=== PATIENT | male | born 1990 | race Caucasian/White ===

== ENCOUNTER 2018-01-05 05:40 | Day surgery (SDC) | payer OTHER ==
[~2018-01-05] VITALS: Ht 167.6 cm; Wt 63.0 kg
--- NOTE | ~2018-01-05 | PATH ---
[facility] [address] [place] [address] PATHOLOGY RPT PROCEDURE Name: MARZENA WASHINGTON Room #: DEP [facility] M.R.#: [id number] Admission: 01/05/18 Date of : 89 Discharge: 01/05/18 Report #: [id number] Path Case #: [id number] [facility] Accession Number: [id number] . 01 Material submitted: . PART A: RIGHT TONSIL AND ADENOID PART B: LEFT TONSIL . 01 Clinical history: . Hypertrophy tonsils and adenoid, chronic sinusitis . 02 Diagnosis: A. Tonsil and adenoid, right tonsillectomy and adenoidectomy: - Acutely inflamed epithelium overlying lymphoid tissue with reactive hyperplasia. . B. Tonsil, left, tonsillectomy: - Acutely inflamed epithelium overlying lymphoid tissue with reactive hyperplasia. (IUV:01/06/2018) QMS/01/06/2018 . 02 Electronically signed: . Kristi Hayes MD, Pathologist NPI- [id number] . 01 Gross description: . A. The specimen is received in formalin, labeled "Marzena Washington, and right tonsil and adenoid", is a carr-pink rubbery tonsil measuring 3.5 x 3.0 x 1.5 cm and multiple irregular fragments of carr-pink friable adenoids measuring 1.6 x 1.0 x 0.5 cm. Serial sectioning of the tonsil reveals a convoluted cut surface containing a yellow-white sulfur granule. The cut surface of the adenoid is unremarkable. Hot Dimpling Machine Operator sections are submitted in A1. (Adenoids entirely submitted). . B. The specimen is received in formalin, labeled "Marzena Washington, and left tonsil", is a carr-pink rubbery tonsil measuring 4.0 x 2.2 x 1.7 cm. Serial sectioning of the tonsil reveals a convoluted cut surface containing a yellow-white sulfur granule. The cut surface of the adenoid is unremarkable. Hot Dimpling Machine Operator sections are submitted in B1. ([facility]; 01/05/2018) SHS/SHS . 02 Pathologist provided ICD-10: J35.3, J35.03, J03.90 . 02 [place] [address] PATHOLOGY RPT PROCEDURE Name: MARZENA WASHINGTON Room #: DEP [facility].#: [id number] Admission: 01/05/18 Date of : 89 Discharge: 01/05/18 Report #: [id number] Path Case #: [id number] Performed at: [address] [facility] [id number] [facility] [address], [place], [place] [id number] MD Pollo London MD Phone: [phone] Performed at: [address] [id number] MD Kristi Hayes MD Phone: [phone]
--- NOTE | ~2018-01-05 | O ---
[facility] [place] [address] [address] OPERATIVE REPORT Name: MARZENA RASHEED Room #: 150-7 [facility] M..#: [id number] Admission: 01/05/18 Attend Phys: Ellis Pardo MD Discharge: Date of : 89 Report #: [id number] THIS REPORT FOR: //name// CC: [facility] physician/PCP Ellis Pardo DATE OF SERVICE: 01/05/2018 PREOPERATIVE DIAGNOSES: Chronic sinusitis, tonsil and adenoid hypertrophy, chronic tonsillitis. POSTOPERATIVE DIAGNOSES: Chronic sinusitis, tonsil and adenoid hypertrophy, chronic tonsillitis. OPERATIVE PROCEDURE: Tonsillectomy and adenoidectomy. ANESTHESIA: General endotracheal. DESCRIPTION OF PROCEDURE: The patient was taken to the operating room and placed in supine position. General anesthesia was induced by endotracheal intubation. Once adequate general anesthesia was obtained, the patient was draped in a sterile manner. A Landry-Sammy mouth gag was placed into the patient's mouth, and the tongue was deviated upward. A throat pack was placed. Red rubber catheters were placed through the nose and nasopharynx and out the oropharynx and oral cavity to elevate the soft palate, and the nasopharynx was visualized indirectly using a mirror. The adenoid was hypertrophied, and adenoidectomy was performed by placing the adenoid curette at the base of the vomer and sweeping downward. The adenoid was removed and sent to pathology. Nasopharyngeal packing was placed. The right tonsil was grasped and deviated towards midline. An incision was placed in the anterior tonsillar pillar using the Bovie electrocautery and a plane between tonsillar capsule and tonsillar fossa was established. Dissection was carried out in this plane using the Bovie, and hemostasis was achieved during the dissection. Dissection was carried out from superior to inferior. The inferior pole was incised. The posterior tonsillar mucosa was incised. Tonsil was removed and sent to pathology. The left tonsil was removed in exactly the same manner. The area was then irrigated with normal saline. Hemostasis was verified in the tonsillar beds. The nasopharyngeal pack was removed. The nasopharynx was irrigated. There was adequate hemostasis in the nasopharynx as well. The throat pack, mouth gag and red rubber catheters were all removed. The patient tolerated the procedure well. Blood loss approximately 20 mL. The patient was awoken and taken to the recovery room in stable condition for postoperative monitoring. By: [id number] Ellis Pardo MD /nt
--- NOTE | ~2018-01-05 | H ---
[facility] [place] [address] HISTORY AND PHYSICAL Name: MARZENA RASHEED Room #: REG [facility] M..#: [id number] Admission: 01/05/18 Attend Phys: Ellis Pardo MD Discharge: Date of : 89 Report #: [id number] THIS REPORT FOR: //name// CC: [facility] physician/PCP Ellis aPrdo DATE OF SERVICE: 01/05/2018 HISTORY OF PRESENT ILLNESS: The patient has difficulty breathing through his nose. He has allergic rhinitis and is treated with inhalers, nasal sprays and antihistamine. He has difficulty breathing through his nose. He has had problems with his tonsils when he was younger. PAST MEDICAL HISTORY: Otherwise, not significant. MEDICATIONS: Include QVAR, Astelin, Zyrtec, Nexium. ALLERGIES: He has no known drug allergies. PHYSICAL EXAMINATION: He has protrusion of the anterior cartilaginous septum into the right nasal vestibule and a mildly deviated nasal septum to the right side. He had quite a bit of swelling of the inferior turbinates. He has a small papilloma on the end of the uvula, which is elongated. He had 3+ enlarged tonsils with blockage of the posterior pharynx. Nasal endoscopy showed polypoid middle turbinates and a mildly enlarged adenoid. IMPRESSION: Tonsil and adenoid hypertrophy with allergic rhinitis and upper airway obstruction. PLAN: Tonsillectomy and adenoidectomy. <ELECTRONICALLY SIGNED> By: Ellis Pardo MD 01/05/18 [id number] [id number] Ellis Pardo MD /duc
[~2018-01-05 05:40] MED LIST: FLONASE 0.05%50 MCG NASAL; ZYRTEC10 M5 PO
[2018-01-05 06:55] VITALS: BP 114/76
[2018-01-05 09:20] VITALS: BP 114/76
== END 2018-01-05 11:05 | disposition home or self-care (01) ==
LOC: OR 05:40 → TBA 08:51 → OR 09:17
DX: J35.01 Chronic tonsillitis (principal); J35.3 Hypertrophy of tonsils with hypertrophy of adenoids; J32.9 Chronic sinusitis, unspecified; Z98.890 Other specified postprocedural states
CPT/HCPCS: 50010; 50101; 62110; 62900; 70005